=== PATIENT | male | born 1940 | race Caucasian/White ===

== ENCOUNTER 2021-01-04 11:52 | Inpatient (IN) ==
[2021-01-04 12:46] LABS: Basophils % 0.4 %; Eosinophils % 0.3 %; Hematocrit 43.6 % (37.5-50.1); Hemoglobin 13.9 g/dL (12.9-16.9); Immature Granulocytes % 0.6 % (0-4); Lymphocytes # 2.2 K/mcL (0.6-4.6); Lymphocytes % 19.8 %; Mean Corpuscular HGB Conc 31.9 g/dL (31.6-35.5); Mean Corpuscular Hemoglobin 31.9 pg (28.0-33.3); Monocytes % 8.8 %; Neutrophils # 7.8 K/mcL (1.6-8.9); Platelet Count 117 K/mcL (140-400); Red Blood Count 4.36 M/mcL (4.19-5.50); Red Cell Distribution Width 16.1 % (11.5-14.5); Segmented Neutrophils % 70.1 %; White Blood Count 11.1 K/mcL (4.3-11.1)
[2021-01-04 13:20] LABS: Bilirubin,Urine Negative (Negative); Blood,Urine Negative (Negative); Clarity,Urine Clear (Clear); Color,Urine Yellow (Yellow); Glucose,Urine (UA) Normal (Normal); Ketones,Urine Negative (Negative); Leukocyte Esterase,Urine Negative (Negative); Nitrite,Urine Negative (Negative); PH,Urine 5.5 pH Units (5.0-8.0); Protein,Urine Trace mg/dL (Neg-Trace); Specific Gravity,Urine 1.024 (1.010-1.025); Urobilinogen,Urine Normal (Normal)
[2021-01-04 13:45] LABS: Albumin 3.3 g/dL (3.5-5.7); Albumin/Globulin Ratio 1.1 (1.1-2.2); Bilirubin,Direct 0.2 mg/dL (0.0-0.2); Bilirubin,Indirect 0.4 mg/dL (0.0-1.0); Bilirubin,Total 0.6 mg/dL (0.3-1.0); Calcium 9.3 mg/dL (8.6-10.3); Globulin 2.9 g/dL (2.4-3.5); Potassium 7.4 mEq/L (3.5-5.1); Total Protein 6.2 g/dL (6.4-8.9)
[2021-01-04] MEDS ORDERED: *HR* Dextrose 50 % in Water (Syg) 50 ML SYRINGE IVP STA (13:48)
[2021-01-04] MEDS ORDERED: Albuterol 2.5 MG/3 ML NEBULIZER IH ONE (13:48)
[2021-01-04] MEDS ORDERED: 0.9 % Sodium Chloride 500 ML IVC ONE (13:51)
[2021-01-04] MEDS ORDERED: Calcium Gluconate 1gm/50mL 1 GM/50 ML BAG IVPB PRN (13:51)
[2021-01-04] MEDS ORDERED: Ringers Solution, Lactated 500 ML IVC ONE (13:52)
[2021-01-04 15:08] LABS: Troponin I 0.07 ng/mL (< 0.04)
[2021-01-04] MEDS ORDERED: Ondansetron 4 MG/2 ML VIAL IVP PRN (16:19)
[2021-01-04] MEDS ORDERED: Naloxone 0.4 MG/ML INJ IVP PRN (16:19)
[2021-01-04] MEDS: Sodium Bicarbonate 150 MEQ in Water for inj. (sterile) 1,000 ML IVC SCH (18:51)
[2021-01-04] MEDS: Haloperidol Oral Conc 10 MG/5 ML UDC PO PRN (23:14)
[2021-01-05 06:56] LABS: Calcium 8.7 mg/dL (8.6-10.3); Potassium 6.1 mEq/L (3.5-5.1)
[2021-01-05] MEDS: Sodium Bicarbonate 150 MEQ in Water for inj. (sterile) 1,000 ML IVC SCH (08:26)
[2021-01-05] MEDS ORDERED: Insulin Human Regular 10 UNIT in 0.9 % Sodium Chloride 10 ML IV ONE (10:54)
[2021-01-05] MEDS ORDERED: *HR* Dextrose 50 % in Water (Syg) 50 ML SYRINGE IVP ONE (11:30)
[2021-01-05] MEDS: Haloperidol Oral Conc 10 MG/5 ML UDC PO PRN ×2 (12:41→22:16)
[2021-01-05] MEDS: SODIUM ZIRCONIUM CYCLOSILICATE 5 GM POWD.PACK PO SCH ×4 (12:51→22:17)
[2021-01-05] MEDS ORDERED: Acetaminophen IV 1,000 MG/100 ML BAG IVPB ONE (23:26)
[2021-01-06 01:06] LABS: Basophils % 0.3 %; Eosinophils # 0.1 K/mcL (0.0-0.6); Eosinophils % 1.4 %; Hematocrit 36.6 % (37.5-50.1); Immature Granulocytes % 0.6 % (0-4); Immature Platelets 2.9 % (1.1-6.1); Lymphocytes # 1.5 K/mcL (0.6-4.6); Lymphocytes % 15.2 %; Mean Corpuscular HGB Conc 32.8 g/dL (31.6-35.5); Mean Corpuscular Hemoglobin 32.3 pg (28.0-33.3); Mean Corpuscular Volume 98.7 fL (83.0-100.0); Mean Platelet Volume 10.5 fL (9.4-12.4); Monocytes # 0.9 K/mcL (0.0-1.3); Monocytes % 9.2 %; Neutrophils # 7.1 K/mcL (1.6-8.9); Platelet Count 138 K/mcL (140-400); Red Blood Count 3.71 M/mcL (4.19-5.50); Red Cell Distribution Width 16.1 % (11.5-14.5); Segmented Neutrophils % 73.3 %; White Blood Count 9.7 K/mcL (4.3-11.1)
[2021-01-06 01:23] LABS: Calcium 8.3 mg/dL (8.6-10.3); Magnesium 2.3 mg/dL (1.6-2.6); Phosphorous 4.2 mg/dL (2.7-4.5); Potassium 4.9 mEq/L (3.5-5.1)
[2021-01-06] MEDS: Haloperidol Oral Conc 10 MG/5 ML UDC PO PRN (03:28)
[2021-01-06] MEDS ORDERED: *HR* Metoprolol 5 MG/5 ML VIAL IVP ONE (06:43)
[2021-01-06] MEDS ORDERED: *HR* LORazepam 0.5 MG TABLET PO PRN (09:08)
[2021-01-06] MEDS: SODIUM ZIRCONIUM CYCLOSILICATE 5 GM POWD.PACK PO SCH ×2 (09:22→17:38)
[2021-01-06] MEDS: QUEtiapine Fumarate 100 MG TABLET PO SCH ×2 (09:22→20:44)
[2021-01-06] MEDS: Haloperidol Lactate 5 MG/ML VIAL IVP PRN ×2 (13:08→23:03)
[2021-01-06] MEDS ORDERED: *HR* LORazepam 2 MG/ML VIAL IVP ONE (14:29)
[2021-01-06] MEDS ORDERED: *HR* LORazepam 2 MG/ML VIAL IVP PRN (15:49)
[2021-01-06] MEDS: Lactulose Oral Soln 20 GM/30 ML UDC PO SCH ×2 (17:37→20:43)
[2021-01-06] MEDS: *HR* LORazepam Oral Conc 2 MG/ML PO SCH (19:59)
[2021-01-06] MEDS: Sennosides 8.6 MG TABLET PO SCH (20:44)
[2021-01-06] MEDS ORDERED: Mirtazapine 15 MG TABLET PO SCH (21:00)
[2021-01-06] MEDS ORDERED: Divalproex (24 HR) 500 MG TABLET PO SCH (21:00)
[2021-01-06] MEDS ORDERED: QUEtiapine Fumarate 100 MG TABLET PO SCH (21:00)
[2021-01-07] MEDS: Haloperidol Lactate 5 MG/ML VIAL IVP PRN (03:35)
[2021-01-07 04:33] VITALS: BP 132/74; PULSE 72; TEMP 98.1; O2SAT 91
[2021-01-07 06:23] LABS: Basophils % 0.5 %; Eosinophils # 0.4 K/mcL (0.0-0.6); Eosinophils % 5.2 %; Hemoglobin 13.1 g/dL (12.9-16.9); Immature Granulocytes % 0.5 % (0-4); Lymphocytes # 2.1 K/mcL (0.6-4.6); Lymphocytes % 25.6 %; Mean Corpuscular Hemoglobin 31.7 pg (28.0-33.3); Mean Corpuscular Volume 99.3 fL (83.0-100.0); Mean Platelet Volume 9.9 fL (9.4-12.4); Monocytes # 0.7 K/mcL (0.0-1.3); Monocytes % 7.9 %; Neutrophils # 4.9 K/mcL (1.6-8.9); Platelet Count 142 K/mcL (140-400); Red Blood Count 4.13 M/mcL (4.19-5.50); Red Cell Distribution Width 15.8 % (11.5-14.5); Segmented Neutrophils % 60.3 %; White Blood Count 8.2 K/mcL (4.3-11.1)
[2021-01-07 07:08] LABS: Calcium 8.7 mg/dL (8.6-10.3); Magnesium 2.1 mg/dL (1.6-2.6); Phosphorous 3.6 mg/dL (2.7-4.5); Potassium 3.5 mEq/L (3.5-5.1)
[2021-01-07] MEDS ORDERED: Metoprolol XL (24 HR) Succ 25 MG TAB.ER.24H PO SCH (09:00)
[2021-01-07] MEDS ORDERED: Aspirin Enteric Coated 81 MG Tablet PO SCH (09:00)
[2021-01-07] MEDS: *HR* LORazepam Oral Conc 2 MG/ML PO SCH (10:44)
[2021-01-07] MEDS: Sennosides 8.6 MG TABLET PO SCH (10:44)
[2021-01-07] MEDS: QUEtiapine Fumarate 100 MG TABLET PO SCH (10:44)
[2021-01-07 10:53] LABS: Adenovirus Not Detected (Not Detect); Coronavirus 229E Not Detected (Not Detect); Coronavirus HKU1 Not Detected (Not Detect); Coronavirus NL63 Not Detected (Not Detect); Coronavirus OC43 Not Detected (Not Detect); Human Metapneumovirus Not Detected (Not Detect); Human Rhinovirus/Enterovirus Not Detected (Not Detect); SARS-CoV-2 Not Detected (Not Detect)
[2021-01-07 10:54] LABS: Bordetella Pertussis Not Detected (Not Detect); Chlamydophila pneumoniae Not Detected (Not Detect); Influenza A Subtype 2009 H1 Not Detected (Not Detect); Influenza B Not Detected (Not Detect); Mycoplasma pneumoniae Not Detected (Not Detect); Parainfluenza Virus 1 Not Detected (Not Detect); Parainfluenza Virus 2 Not Detected (Not Detect); Parainfluenza Virus 3 Not Detected (Not Detect); Parainfluenza Virus 4 Not Detected (Not Detect); Respiratory Syncytial Virus Not Detected (Not Detect)
[2021-01-07] MEDS: Lactulose Oral Soln 20 GM/30 ML UDC PO SCH (10:54)
== END 2021-01-07 13:39 | disposition home or self-care (01) | DRG 682 ==
LOC: EMEROOARM 11:52 → 2ANU 11:52
PROVIDERS: ADMIT Internal Medicine; ATTEND Internal Medicine